=== PATIENT | male | born 1950 | race Caucasian/White ===

== ENCOUNTER 2023-03-07 09:58 | Outpatient (RCR) | payer MEDICARE, BC, SELFPAY | END 2023-03-07 23:59 | disposition home or self-care (01) | LOC: RST 09:58 | PROVIDERS: ATTENDING PHYSICIAN Nurse Practitioner Primary Care | DX: K22.5 Diverticulum of esophagus, acquired (principal); R13.10 Dysphagia, unspecified; R47.1 Dysarthria and anarthria; R13.12 Dysphagia, oropharyngeal phase; C77.9 Secondary and unspecified malignant neoplasm of lymph node, unspecified; Z85.810 Personal history of malignant neoplasm of tongue | CPT/HCPCS: 92522; 92526; 92610 ==

== ENCOUNTER 2023-03-08 09:59 | Outpatient (RCR) | payer MEDICARE, BC, SELFPAY | END 2023-03-08 23:59 | disposition home or self-care (01) | LOC: RPT 09:59 | PROVIDERS: ATTENDING PHYSICIAN Nurse Practitioner Primary Care | DX: I89.0 Lymphedema, not elsewhere classified (principal); R29.898 Other symptoms and signs involving the musculoskeletal system; Z73.6 Limitation of activities due to disability; Z98.890 Other specified postprocedural states; Z85.810 Personal history of malignant neoplasm of tongue | CPT/HCPCS: 97110; 97162 ==

== ENCOUNTER 2023-03-30 10:24 | Outpatient (RCR) | payer MEDICARE, BC, SELFPAY | END 2023-03-30 23:59 | disposition home or self-care (01) | LOC: RST 10:24 | PROVIDERS: ATTENDING PHYSICIAN Nurse Practitioner Primary Care | DX: K22.5 Diverticulum of esophagus, acquired (principal); C77.9 Secondary and unspecified malignant neoplasm of lymph node, unspecified; R13.10 Dysphagia, unspecified; R47.1 Dysarthria and anarthria; R13.12 Dysphagia, oropharyngeal phase; Z85.810 Personal history of malignant neoplasm of tongue | CPT/HCPCS: 92507; 92526 ==

== ENCOUNTER 2023-04-06 10:43 | Outpatient (RCR) | payer MEDICARE, BC, SELFPAY | END 2023-04-06 23:59 | disposition home or self-care (01) | LOC: RPT 10:43 | PROVIDERS: ATTENDING PHYSICIAN Nurse Practitioner Primary Care | DX: I89.0 Lymphedema, not elsewhere classified (principal); Z73.6 Limitation of activities due to disability; Z85.810 Personal history of malignant neoplasm of tongue; R29.898 Other symptoms and signs involving the musculoskeletal system; C77.9 Secondary and unspecified malignant neoplasm of lymph node, unspecified; R47.1 Dysarthria and anarthria; R13.12 Dysphagia, oropharyngeal phase; K22.5 Diverticulum of esophagus, acquired | CPT/HCPCS: 97140; 97535 ==

== ENCOUNTER 2023-04-13 10:50 | Outpatient (RCR) | payer MEDICARE, BC, SELFPAY | END 2023-04-13 23:59 | disposition home or self-care (01) | LOC: RST 10:50 | PROVIDERS: ATTENDING PHYSICIAN Nurse Practitioner Primary Care | DX: K22.5 Diverticulum of esophagus, acquired (principal); C77.9 Secondary and unspecified malignant neoplasm of lymph node, unspecified; R13.10 Dysphagia, unspecified; R47.1 Dysarthria and anarthria; R13.12 Dysphagia, oropharyngeal phase; Z85.810 Personal history of malignant neoplasm of tongue | CPT/HCPCS: 92526 ==

== ENCOUNTER 2023-04-27 11:49 | Outpatient (RCR) | payer MEDICARE, BC, SELFPAY | END 2023-04-27 23:59 | disposition home or self-care (01) | LOC: RPT 11:49 | PROVIDERS: ATTENDING PHYSICIAN Nurse Practitioner Primary Care | DX: I89.0 Lymphedema, not elsewhere classified (principal); R29.898 Other symptoms and signs involving the musculoskeletal system; Z73.6 Limitation of activities due to disability; Z98.890 Other specified postprocedural states; Z85.810 Personal history of malignant neoplasm of tongue | CPT/HCPCS: 97110; 97140 ==

== ENCOUNTER 2023-05-31 10:56 | Outpatient (RCR) | payer MEDICARE, BC, SELFPAY | END 2023-05-31 13:50 | disposition home or self-care (01) | LOC: RPT 10:56 | PROVIDERS: ATTENDING PHYSICIAN Nurse Practitioner Primary Care | DX: R29.898 Other symptoms and signs involving the musculoskeletal system (principal); Z73.6 Limitation of activities due to disability; I89.0 Lymphedema, not elsewhere classified; Z85.810 Personal history of malignant neoplasm of tongue; Z98.890 Other specified postprocedural states | CPT/HCPCS: 97140; 97535 ==

== ENCOUNTER → 2023-08-20 09:06 | Outpatient (REF) | payer MEDICARE, BC, SELFPAY | LOC: RAD 09:06 | PROVIDERS: ATTENDING PHYSICIAN Nurse Practitioner Adult Health; FAMILY PHYSICIAN Nurse Practitioner Primary Care | DX: R91.1 Solitary pulmonary nodule (principal) | CPT/HCPCS: 71250 ==

== ENCOUNTER → 2023-11-15 09:23 | Outpatient (REF) | payer MEDICARE, BC, SELFPAY | LOC: RAD 09:23 | PROVIDERS: ATTENDING PHYSICIAN Nurse Practitioner Adult Health; FAMILY PHYSICIAN Nurse Practitioner Primary Care | DX: R91.1 Solitary pulmonary nodule (principal) | CPT/HCPCS: 71250 ==

== ENCOUNTER → 2024-11-10 09:31 | Outpatient (REF) | payer MEDICARE, BC, SELFPAY | LOC: RAD 09:31 | PROVIDERS: ATTENDING PHYSICIAN Nurse Practitioner Adult Health; FAMILY PHYSICIAN Nurse Practitioner Primary Care | DX: R91.1 Solitary pulmonary nodule (principal) | CPT/HCPCS: 71250 ==